=== PATIENT | female | born 1935 | race Caucasian/White ===

== ENCOUNTER 2024-11-04 09:03 | Emergency (ER) | payer BC, SELFPAY ==
[2024-11-04 09:07] VITALS: BP 166/76
[2024-11-04 09:19] VITALS: BMI 30.4
[2024-11-04 09:40] VITALS: BP 159/88
[2024-11-04 09:55] LABS: % Basophils 0.2 % (0-2); % Immature Granulocytes 0.2 % (0-0.5); % Lymphocytes 6.1 % (20.5-51.1); % Monocytes 8.5 % (1.7-9.3); Absolute Lymphocytes 0.8 10^3/uL (1.2-3.4); Absolute Monocytes 1.1 10^3/uL (0.1-0.6); Hematocrit 34.8 % (37.0-47.0); Hemoglobin 11.7 g/dL (12.0-16.0); Mean Corp Hgb Conc. 33.6 g/dL (33.0-37.0); Mean Corpuscular Hgb 31.5 pg (27.0-31.0); Mean Corpuscular Volume 93.5 fL (81.0-99.0); Mean Platelet Volume 10.4 fL (7.4-10.4); Nucleated Red Blood Cells % 0 %; Platelet Count 210 10^3/uL (130-400); Red Blood Cell Count 3.72 10^6/uL (4.20-5.40); Red Cell Dist. Width 14.5 % (11.5-14.5)
--- NOTE | 2024-11-04 10:01 | ED.GENMED ---
History of Present Illness
General
Chief Complaint: Fall
Time Seen by Provider: 11/04/24 09:06
History of Present Illness
History of Present Illness:
88-year-old female with history of dementia presenting after unwitnessed fall. Patient arrives from her memory care unit where she was found on the ground. Patient herself is a very limited historian. She is unable to give any details regarding
the fall. She presently denies acute medical complaints. She denies any pain. Patient noted to have some bruising to her hand, denies pain. Prior to arrival, nursing facility had noted the patient was complaining of right leg pain. Currently
denying any right leg pain. No additional history obtained at this time. Daughter arrived after patient's arrival, notes that it is unusual for patient to fall given her underlying dementia.
Phy Exam
Physical Exam
Physical Exam:
General: Well-appearing, no clinical signs of dehydration, nontoxic and in no acute distress
HEENT: protecting airway
Neck: appears supple
CV: Normal heart rate, regular rhythm
Resp: No accessory muscle use, no increased work of breathing, lungs clear to auscultation bilaterally
Abd: Soft and non-distended, no tenderness to palpation
Extremities: No deformities, no swelling, mild bruising to the metacarpal region of the right hand with range of motion intact. No deformity to the right lower extremity. Range of motion grossly intact. No ecchymosis or swelling
Neuro: alert, disoriented, no focal neurologic deficits
: deferred
Rectal: deferred
Psych: Normal affect
Skin: Intact
Course
Orders/Labs/Results
Orders:
Orders
11/04/24 09:32
Electrocardiogram (*1) Urgent
Reason for Study: Other
Other Reason for Exam: screening
CT Head W/o Iv Contrast Urgent
Comment:
Reason For Exam: unwitnessed fall
EKG- Treatment ONCE
11/04/24 09:44
Complete Blood Count/With Diff Urgent
Comprehensive Metabolic Panel Urgent
11/04/24 09:46
Hand, Right 3 View [CR Hand - Right Min 3 Views] Urgent
Comment:
Reason For Exam: bruising after fall
Hip, Right 2-3 Views [CR Hip - RT w/wo Pel 2-3 Vw*] Urgent
Comment:
Reason For Exam: fall, pain
Include a pelvis x-ray?: Yes
11/04/24 10:31
Urinalysis Reflex To Culture Urgent
Date Specimen was Collected: 11/04/24
Time Specimen was Collected: 10:29
Urine Microscopic Reflex Cult Urgent
Abnormal Lab Results
11/04/24 11/04/24
09:44 10:31
WBC 13.0 H 10^3/uL
(4.8-10.8)
RBC 3.72 L 10^6/uL
(4.20-5.40)
Hgb 11.7 L g/dL
(12.0-16.0)
Hct 34.8 L %
(37.0-47.0)
MCH 31.5 H pg
(27.0-31.0)
Absolute Neuts (auto) 11.0 H 10^3/uL
(1.4-6.5)
Absolute Lymphs (auto) 0.8 L 10^3/uL
(1.2-3.4)
Absolute Monos (auto) 1.1 H 10^3/uL
(0.1-0.6)
Neutrophils % 85.0 H %
(42.2-75.2)
Lymphocytes % 6.1 L %
(20.5-51.1)
Chloride 111 H mmol/L
(98-107)
BUN 39 H mg/dl
(7-17)
Glucose 129 H mg/dl
(70-99)
Calcium 10.7 H mg/dl
(8.4-10.2)
AST 37 H U/L
(14-36)
Ur Occult Blood Reflex 2+ A
(Negative)
Urine Albumin (Reflex) 2+ A
(Neg - Trace)
11/04/24 09:44
11/04/24 09:44
Vital Signs
Initial and Last Documented VS:
Initial Vital Signs
Temp Pulse Resp BP Pulse Ox
97.4 F 101 18 166/76 97
11/04/24 09:07 11/04/24 09:07 11/04/24 09:07 11/04/24 09:07 11/04/24 09:07
Last Documented Vital Signs
Temp Pulse Resp BP Pulse Ox
96.5 F L 97 16 150/75 97
11/04/24 09:24 11/04/24 11:14 11/04/24 11:14 11/04/24 11:14 11/04/24 11:14
MDM/Problems Addressed
MDM/Problems Addressed:
88-year-old female with history of dementia presenting for unwitnessed fall. Vital signs are significant for mild hypertension.
On exam, patient is well-appearing, no acute distress or discomfort. No significant signs of acute trauma. Patient is disoriented, however reported baseline. Unremarkable cardiac and pulmonary exam. No signs of head trauma, no tenderness to the
cervical spine. Given unwitnessed fall, will screen with CT brain. Prehospital report the patient had been complaining of right leg pain. Patient is very limited historian. No signs of deformity or swelling to the right lower extremity, however
will screen with x-ray imaging of the hip, high risk for hip injury. Also some mild ecchymosis to the right hand. Will screen with x-ray imaging. Given unknown details of the fall, will also screen with laboratory analysis and EKG.
11:20 - Labs are unremarkable. EKG is nonischemic. Imaging without fracture or traumatic injury. Feel stable for discharge back to nursing facility. Will provide transportation
*EKG
Interpreted by ED Provider?: Yes
EKG Intrepretation Date: 11/04/24
EKG Intrepretation Time: 10:14
Interpretation: normal
Comparison EKG: no changes (12/17/15)
Heart Rate: 98
Rate: normal
Rhythm: sinus
[place]: normal axis
Interval: normal interval
QRS Pattern: normal QRS and right bundle branch block
Ischemia: no ischemia
*Critical Care Note
Total Time (30-74mins, 75-104mins- exclusive of procedures): Not Applicable
ED Attending Note
-
Portions of this chart may have been created with voice recognition software.� Occasional wrong word or��sound alike� substitutions may have occurred due to the inherent limitations of voice recognition software.
Discharge Plan
Departure
Referrals:
Luis Fernando Elder MD [Family Provider] -
Interventions
Interventions:
*Risk Screen - Suicide Last Done: 11/04/24 09:16
*General Assessment Last Done: 11/04/24 09:16
*Neglect/Abuse Screening Last Done: 11/04/24 09:16
*ED- Fall Risk Assessment Last Done: 11/04/24 09:17
*ED COVID-19 Vaccine History Last Done: 11/04/24 09:17
ED-Musculoskeletal Assessment Last Done: 11/04/24 09:20
ED- Neurological Assessment Last Done: 11/04/24 09:20
ED-Skin Assessment Last Done: 11/04/24 09:28
Discharge Date and Time
Print Language: BAHAMIAN
[2024-11-04 10:04] LABS: ALT (SGPT) 24 U/L (0-35); AST (SGOT) 37 U/L (14-36); Albumin 4.1 g/dl (3.5-5.0); Alkaline Phosphatase 106 U/L (38-126); Blood Urea Nitrogen 39 mg/dl (7-17); Calcium 10.7 mg/dl (8.4-10.2); Carbon Dioxide 23 mmol/L (22-30); Chloride 111 mmol/L (98-107); Estimated Creatinine Clearance 46 ml/min; Glucose 129 mg/dl (70-99); Potassium 4.5 mmol/L (3.5-5.1); Sodium 143 mmol/L (135-145); Total Bilirubin 0.7 mg/dl (0.2-1.3); Total Protein 6.5 g/dl (6.3-8.2); eGFR > 60.00
[2024-11-04 10:15] VITALS: BP 153/69
--- NOTE | 2024-11-04 10:41 | EDRN ---
History updated w/ pt's daughter who is her POA.
[2024-11-04 10:47] LABS: Urine Albumin 2+ (Neg - Trace); Urine Bilirubin Negative (Negative); Urine Character Clear (Clear); Urine Color Yellow; Urine Glucose Negative (Negative); Urine Ketone Negative (Negative); Urine Leukocyte Negative (Negative); Urine Nitrite Negative (Negative); Urine Occult Blood 2+ (Negative); Urine Urobilinogen Negative (Neg - 1+)
[2024-11-04 11:14] VITALS: BP 150/75
--- NOTE | 2024-11-04 11:22 | EDRN ---
Dr. Cardona in room w/pt.
[2024-11-04 11:29] LABS: Urine Mucus Few
[2024-11-04 11:30] LABS: Urine Amorphous Seen; Urine Squamous Cell 0-2 /LPF (Few)
[2024-11-04 11:31] LABS: Urine White Cell 0-2 /HPF (0-5)
[2024-11-04 11:38] LABS: Urine Bacteria Few (Negative)
--- NOTE | 2024-11-04 11:52 | EDRN ---
Attempted to call report at this time to [facility] at [phone] but was answered by an answering machine, will try again later.
[2024-11-04 12:00] VITALS: BP 148/66
[2024-11-04 13:00] VITALS: BP 150/69
--- NOTE | 2024-11-04 13:01 | EDRN ---
Second attempt to call report to [facility]. No answer but this time did leave a message on answering machine to call this RN back for report.
--- NOTE | 2024-11-04 13:15 | EDRN ---
Addendum entered by Kim Montanez RN 11/04/24 13:19:
I did get a phone number [phone] and called that number and spoke to Korina Sumner LPN and gave report to her.
Original Note:
Third attempt and got answering machine
--- NOTE | 2024-11-04 13:24 | EDRN ---
Pt taken off monitored vs as playing w/ cuff and POX.
== END 2024-11-04 13:37 | disposition home or self-care (01) ==
LOC: EMR 09:03
PROVIDERS: EMERGENCY PHYSICIAN Student in an Organized Health Care Education/Training Program; FAMILY PHYSICIAN Family Medicine
DX: M79.604 Pain in right leg (principal); S60.221A Contusion of right hand, initial encounter; W19.XXXA Unspecified fall, initial encounter; R03.0 Elevated blood-pressure reading, without diagnosis of hypertension; F03.90 Unspecified dementia, unspecified severity, without behavioral disturbance, psychotic disturbance, mood disturbance, and anxiety
CPT/HCPCS: 99285; 70450; 73130; 73502; 80053; 81003; 81015; 85025; 93005

== ENCOUNTER → 2024-11-26 07:30 | Outpatient (REF) | payer OTHER, SELFPAY ==
[2024-11-26 15:57] LABS: Urine Albumin 1+ (Neg - Trace); Urine Bilirubin Negative (Negative); Urine Character Clear (Clear); Urine Color Yellow; Urine Glucose Negative (Negative); Urine Ketone Negative (Negative); Urine Leukocyte 3+ (Negative); Urine Nitrite Negative (Negative); Urine Occult Blood Negative (Negative); Urine Specific Gravity 1.015 (<1.030); Urine Urobilinogen Negative (Neg - 1+)
[2024-11-26 16:25] LABS: Urine Mucus Few
[2024-11-26 16:26] LABS: Urine Bacteria Moderate (Negative); Urine Red Blood Cell 0-2 /HPF (0-2); Urine White Cell 26-30 /HPF (0-5)
== END ==
LOC: OLABBH 07:30
PROVIDERS: ATTENDING PHYSICIAN Family Medicine
DX: R35.0 Frequency of micturition (principal)
CPT/HCPCS: 81003; 81015; 87086

== ENCOUNTER 2024-12-04 05:50 | Emergency (ER) | payer OTHER, SELFPAY ==
[2024-12-04 05:52] VITALS: BP 146/99
[2024-12-04 05:53] VITALS: BP 146/99
[2024-12-04 06:01] VITALS: BP 166/95
[2024-12-04 06:02] VITALS: BMI 28.1
--- NOTE | 2024-12-04 06:06 | ED.GENMED ---
History of Present Illness
General
Chief Complaint: Fall
Time Seen by Provider: 12/04/24 06:06
History of Present Illness
History of Present Illness:
TIME OF INITIAL ENCOUNTER: 6:06 AM
HPI: Patient came in by ambulance from [facility] after being found down. She was found to have scalp hematoma on the left backside of her head. She is a poor historian but does report pain which appears to be coming from her low back.
EXAM:
GENERAL: Is chronically ill in appearance and weak
CERVICAL SPINE: Cervical spine collar in place
HEAD: Left posterior scalp hematoma
CHEST: No chest wall tenderness, normal heart sounds
LUNGS: Equal lung sounds, no respiratory distress
ABDOMEN: No abdominal tenderness, no peritoneal signs
EXTREMITIES: Good active range of motion, no tenderness
NEURO: Fair strength in all extremities, oriented to self but is a very poor historian, follows commands with difficulty
NUMBER AND COMPLEXITY OF PROBLEMS ADDRESSED AT THE ENCOUNTER
� Chronic conditions affecting care: Dementia, high blood pressure, hyperlipidemia, left breast cancer
� Acute Exacerbation and/or Progression of Chronic Illness: This is an acute problem
� Differential Diagnosis includes: Intracranial hemorrhage, spine fracture, anemia, dysrhythmia
AMOUNT AND/OR COMPLEXITY OF DATA TO BE REVIEWED AND ANALYZED
� I performed an independent evaluation of and my interpretation is:
EKG: Sinus 109 right bundle branch block unchanged from prior
CT: CT L-spine shows no acute lumbar fracture, CT head shows no acute traumatic abnormality, CT cervical spine shows no acute C-spine fracture
X-rays:
Laboratory Studies: White count and hemoglobin are normal, chemistries unremarkable however the BUN is elevated 26 with creatinine 1.0
Other:
� Review of other/old records: The patient was seen here after a fall in October 2024 and went to the OR for rotator cuff injury in 2016
� Clinical information was obtained by an independent historian: EMS
� Prescriptions/Medications Considered but not given:
� Further testing considered but not performed:
RISK OF COMPLICATIONS AND/OR MORBIDITY OR MORTALITY OF PATIENT MANAGEMENT
� Social determinants of health affecting care: Resides at [facility]
� Discussion with other providers:
� Escalation of care including admission/observation vs risk of discharge considered: The patient had labs as the reason for being found down is unclear. Labs suggest some degree of mild dehydration. She was given IV fluids.
CT imaging reassuring
ANY OTHER UPDATES:
7:20 AM: I reassessed patient. The patient has no clear evidence of serious traumatic injury other than the hematoma to the scalp. She appears very anxious on reassessment, and is hypertensive and tachycardic on reassessment.
Phy Exam
Physical Exam
Physical Exam:
See HPI
Course
Orders/Labs/Results
Orders:
Orders
12/04/24
Electrocardiogram (*1) Stat
Reason for Study: Chest Pain
Comment: DONE
12/04/24 06:13
0.9% Sodium Chloride 500 ml [Nss] 500 ml IV BOLUS
12/04/24 06:14
CT Cervical Spine W/o Iv Contr Urgent
Comment:
Reason For Exam: fall trauma
CT Head W/o Iv Contrast Urgent
Comment:
Reason For Exam: head injury
CT Lumbar Spine W/o Iv Contras Urgent
Comment:
Reason For Exam: fall pain
12/04/24 06:18
Basic Metabolic Panel Urgent
Complete Blood Count/With Diff Urgent
Abnormal Lab Results
12/04/24
06:18
RBC 3.88 L 10^6/uL
(4.20-5.40)
Hct 36.0 L %
(37.0-47.0)
MCH 31.7 H pg
(27.0-31.0)
Absolute Monos (auto) 0.8 H 10^3/uL
(0.1-0.6)
Monocytes % 10.5 H %
(1.7-9.3)
Eosinophils % 7.2 H %
(0-6)
BUN 26 H mg/dl
(7-17)
Glucose 108 H mg/dl
(70-99)
Calcium 10.8 H mg/dl
(8.4-10.2)
12/04/24 06:18
12/04/24 06:18
Vital Signs
Initial and Last Documented VS:
Initial Vital Signs
Temp Pulse Resp BP Pulse Ox
36.9 C 97 20 146/99 98
12/04/24 05:52 12/04/24 05:52 12/04/24 05:52 12/04/24 05:52 12/04/24 05:52
Last Documented Vital Signs
Temp Pulse Resp BP Pulse Ox
36.8 C 99 18 145/79 99
12/04/24 08:04 12/04/24 08:04 12/04/24 08:04 12/04/24 08:04 12/04/24 08:04
*Critical Care Note
Total Time (30-74mins, 75-104mins- exclusive of procedures): Not Applicable
ED Attending Note
-
Portions of this chart may have been created with voice recognition software.� Occasional wrong word or��sound alike� substitutions may have occurred due to the inherent limitations of voice recognition software.
Discharge Plan
Departure
Patient Disposition: Home (Routine Discharge)
Date of Disposition: 12/04/24
Time of Disposition: 07:29
Patient with high blood pressure during this ER visit?: Yes
Discharge Problem:
Head injury
Instructions: Head Injury in Adults (DC)
Referrals:
Luis Fernando Elder MD [Family Provider] -
Activity Restrictions/Additional Instructions:
CAT scan of the brain, cervical spine, and lumbar spine showed no acute abnormality, EKG unremarkable, basic blood work unremarkable however the BUN was slightly high. She was given IV fluids. Return here if worse or other concerns.
Interventions
Interventions:
*Risk Screen - Suicide Last Done: 12/04/24 05:52
*General Assessment Last Done: 12/04/24 05:52
*Neglect/Abuse Screening Last Done: 12/04/24 05:52
*ED- Fall Risk Assessment Last Done: 12/04/24 05:52
*ED COVID-19 Vaccine History Last Done: 12/04/24 05:52
ED-Musculoskeletal Assessment Last Done: 12/04/24 05:52
ED- Neurological Assessment Last Done: 12/04/24 05:52
ED-Skin Assessment Last Done: 12/04/24 05:52
Discharge Date and Time
Print Language: MALAWIAN
[2024-12-04 06:26] LABS: % Basophils 0.4 % (0-2); % Eosinophils 7.2 % (0-6); % Immature Granulocytes 0.3 % (0-0.5); % Monocytes 10.5 % (1.7-9.3); % Neutrophils 51.6 % (42.2-75.2); Absolute Eosinophils 0.5 10^3/uL (0-0.7); Absolute Lymphocytes 2.2 10^3/uL (1.2-3.4); Absolute Monocytes 0.8 10^3/uL (0.1-0.6); Absolute Neutrophils 3.8 10^3/uL (1.4-6.5); Hemoglobin 12.3 g/dL (12.0-16.0); Mean Corp Hgb Conc. 34.2 g/dL (33.0-37.0); Mean Corpuscular Hgb 31.7 pg (27.0-31.0); Mean Corpuscular Volume 92.8 fL (81.0-99.0); Mean Platelet Volume 10.4 fL (7.4-10.4); Nucleated Red Blood Cells % 0 %; Platelet Count 237 10^3/uL (130-400); Red Blood Cell Count 3.88 10^6/uL (4.20-5.40); Red Cell Dist. Width 14.2 % (11.5-14.5); White Blood Cell Count 7.4 10^3/uL (4.8-10.8)
[2024-12-04] MEDS: NSS 500 IV (06:32)
[2024-12-04 06:39] LABS: Blood Urea Nitrogen 26 mg/dl (7-17); Calcium 10.8 mg/dl (8.4-10.2); Carbon Dioxide 23 mmol/L (22-30); Chloride 107 mmol/L (98-107); Estimated Creatinine Clearance 39 ml/min; Glucose 108 mg/dl (70-99); Potassium 4.5 mmol/L (3.5-5.1); Sodium 142 mmol/L (135-145); eGFR 53.85
[2024-12-04 08:04] VITALS: BP 145/79
[2024-12-04 10:11] VITALS: BP 161/88
== END 2024-12-04 10:35 | disposition home or self-care (01) ==
LOC: EMR 05:50
PROVIDERS: EMERGENCY PHYSICIAN Emergency Medicine; FAMILY PHYSICIAN Family Medicine
DX: S09.90XA Unspecified injury of head, initial encounter (principal); S00.03XA Contusion of scalp, initial encounter; M54.9 Dorsalgia, unspecified; R51.9 Headache, unspecified; W19.XXXA Unspecified fall, initial encounter; R00.0 Tachycardia, unspecified; F03.90 Unspecified dementia, unspecified severity, without behavioral disturbance, psychotic disturbance, mood disturbance, and anxiety; I45.10 Unspecified right bundle-branch block; I10 Essential (primary) hypertension; E78.5 Hyperlipidemia, unspecified; M19.90 Unspecified osteoarthritis, unspecified site; F32.A Depression, unspecified; Z85.3 Personal history of malignant neoplasm of breast; Z88.0 Allergy status to penicillin
CPT/HCPCS: 99284; 70450; 72125; 72131; 80048; 85025; 93005